=== PATIENT | female | born 1965 | race Caucasian/White ===

== ENCOUNTER → 2020-10-02 | Outpatient (CLI) | payer BC ==
[2020-10-02 08:27] LABS: HEMOGLOBIN 13.7 gm/dl (12.3-15.3); RED BLOOD COUNT 4.41 M/UL (4.00-5.10); WHITE BLOOD COUNT 6.2 K/UL (4.5-11.0)
[2020-10-02 08:49] LABS: BUN/CREATININE RATIO 21 (0-10)
== END ==
LOC: LAB 07:45
PROVIDERS: Physician Assistant Medical
DX: R73.09 Other abnormal glucose (principal); E78.2 Mixed hyperlipidemia; I10 Essential (primary) hypertension; K59.1 Functional diarrhea; N39.0 Urinary tract infection, site not specified; N95.1 Menopausal and female climacteric states; R53.83 Other fatigue
CPT/HCPCS: 80053; 80061; 83036; 84443; 85025

== ENCOUNTER → 2020-11-19 | Outpatient (CLI) | payer BC | LOC: MAMO 11-17 09:00 | DX: Z12.31 Encounter for screening mammogram for malignant neoplasm of breast (principal) | CPT/HCPCS: 77063; 77067 ==

== ENCOUNTER → 2021-04-20 | Outpatient (CLI) | payer BC ==
[2021-04-20 08:12] LABS: HEMOGLOBIN 12.1 gm/dl (12.3-15.3); WHITE BLOOD COUNT 6.3 K/UL (4.5-11.0)
[2021-04-20 08:44] LABS: BUN/CREATININE RATIO 17 (0-10)
== END ==
LOC: LAB 07:35
PROVIDERS: Physician Assistant Medical
DX: E78.2 Mixed hyperlipidemia (principal); I10 Essential (primary) hypertension; J30.1 Allergic rhinitis due to pollen; K59.1 Functional diarrhea; N39.0 Urinary tract infection, site not specified
CPT/HCPCS: 80053; 80061; 82607; 84443; 85025

== ENCOUNTER → 2021-08-12 | Outpatient (CLI) | payer BC | LOC: RAD 10:47 | DX: R05.9 Cough, unspecified (principal) | CPT/HCPCS: 71046 ==

== ENCOUNTER → 2021-12-28 | Outpatient (CLI) | payer BC ==
[2021-12-28 08:35] LABS: HEMOGLOBIN 13.1 gm/dl (12.3-15.3); RED BLOOD COUNT 4.24 M/UL (4.00-5.10); WHITE BLOOD COUNT 5.1 K/UL (4.5-11.0)
[2021-12-28 08:55] LABS: BUN/CREATININE RATIO 14 (0-10)
== END ==
LOC: RAD 08:03
PROVIDERS: Nurse Practitioner Family
DX: I10 Essential (primary) hypertension (principal)
CPT/HCPCS: 80053; 80061; 85025

== ENCOUNTER → 2022-01-08 | Outpatient (CLI) | payer BC | LOC: MAMO 11:30 | DX: Z12.31 Encounter for screening mammogram for malignant neoplasm of breast (principal) | CPT/HCPCS: 77063; 77067 ==

== ENCOUNTER → 2022-03-18 | Outpatient (CLI) | payer BC ==
[2022-03-18 09:08] LABS: HEMOGLOBIN 13.5 gm/dl (12.3-15.3); RED BLOOD COUNT 4.36 M/UL (4.00-5.10); WHITE BLOOD COUNT 6.5 K/UL (4.5-11.0)
[2022-03-18 09:35] LABS: BUN/CREATININE RATIO 19 (0-10)
[2022-03-19 08:14] LABS: VITAMIN D, 25-HYDROXY 48.3 ng/mL (30.0-100.0)
[2022-03-19 09:14] LABS: ESTRADIOL 62.2 pg/mL (.); PROGESTERONE 3.2 ng/mL (.); THYROXINE (T4) 9.7 ug/dL (4.5-12.0)
== END ==
LOC: LAB 08:21
PROVIDERS: Nurse Practitioner Family
DX: Z00.01 Encounter for general adult medical examination with abnormal findings (principal); E55.9 Vitamin D deficiency, unspecified; E53.9 Vitamin B deficiency, unspecified; Z90.710 Acquired absence of both cervix and uterus; Z79.890 Hormone replacement therapy; R73.09 Other abnormal glucose; I10 Essential (primary) hypertension
CPT/HCPCS: 80053; 80061; 82607; 82670; 84144; 84402; 84403; 84436; 84443; 84481; 85027